=== PATIENT | male | born 1995 ===

== ENCOUNTER 2016-09-03 22:32 | Emergency (ER) | payer MEDICAID, OTHER ==
[2016-09-03 22:52] VITALS: BMI 31.4
[2016-09-03 23:01] VITALS: BP 118/76; PULSE 76; RESP 17; TEMP 97.8; O2SAT 98
--- NOTE | 2016-09-03 23:21 | ED PDOC ---
Arrival/HPI - General Chief Complaint: Back Pain Time Seen by Provider: 09/03/16 23:11 Historian: Patient - History of Present Illness Narrative History of Present Illness (Text): 09/03/16 23:25 Patient reports 1 week h/o pain in the L mid back, worse with movement, taking tylenol with minimal relief. Otherwise: (-) chest pain, (-) SOB, (-) fever, ( -) cough, (-) trauma, (-) injury, (-) paresthesias, (-) weakness, (-) acute bowel or bladder dysfunction, (-) urinary symptoms, (-) fever. Has no history of prior back problem. PMD Trusty Past Medical History - Provider Review Nursing Documentation Reviewed: Yes - Infectious Disease Hx of Infectious Diseases: None - Cardiac Hx Cardiac Disorders: No - Pulmonary Hx Respiratory Disorders: No - Neurological Hx Neurological Disorder: No - HEENT Hx HEENT Disorder: No - Renal Hx Renal Disorder: No - Endocrine/Metabolic Hx Endocrine Disorders: No - Hematological/Oncological Hx Blood Disorders: No - Integumentary Hx Dermatological Disorder: No - Musculoskeletal/Rheumatological Hx Musculoskeletal Disorders: No - Gastrointestinal Hx Gastrointestinal Disorders: No - Genitourinary/Gynecological Hx Genitourinary Disorders: No - Psychiatric Hx Depression: Yes (gender dysphoria) Hx Substance Use: No - Surgical History Hx Mastectomy: Yes (double) Other/Comment: Neck cyst removal. Double mastectomy - Anesthesia Hx Anesthesia: Yes Hx Anesthesia Reactions: No Hx Malignant Hyperthermia: No Family/Social History - Physician Review Nursing Documentation Reviewed: Yes Family/Social History: No Known Family HX Smoking Status: Never Smoked Hx Alcohol Use: Yes Frequency of alcohol use: Socially Hx Substance Use: No Allergies/Home Meds Allergies/Adverse Reactions: Allergies No Known Allergies Allergy (Unverified 09/03/16 22:52) Home Medications: Home Meds Medication Instructions Recorded Confirmed Testosterone Cypionate 0.5 ml IM AILIN 09/03/16 09/03/16 [Testosterone Cypionate] Review of Systems - Review of Systems Constitutional: Normal. absent: Fatigue, Weight Change, Fevers Respiratory: Normal. absent: SOB, Cough, Sputum Cardiovascular: Normal. absent: Chest Pain, Palpitations, Edema Gastrointestinal: Normal. absent: Abdominal Pain, Stool Changes, Appetite Changes Musculoskeletal: Normal, Arthralgias (L knee pain - chronic), Back Pain. absent : Neck Pain Skin: Normal. absent: Rash, Pruritis, Skin Lesions Physical Exam Vital Signs Temp Pulse Resp BP Pulse Ox 09/03/16 22:56 97.8 F 76 17 118/76 98 Temperature: Afebrile Blood Pressure: Normal Pulse: Regular Respiratory Rate: Normal Appearance: Positive for: Well-Appearing, Non-Toxic, Comfortable Pain Distress: None Mental Status: Positive for: Alert and Oriented X 3 - Systems Exam Head: Present: Atraumatic, Normocephalic Mouth: Present: Moist Mucous Membranes Pharnyx: Present: Normal Neck: Present: Normal Range of Motion. No: Meningeal Signs, MIDLINE TENDERNESS , Lymphadenopathy Respiratory/Chest: Present: Clear to Auscultation, Good Air Exchange. No: Respiratory Distress, Accessory Muscle Use, Wheezes, Rales, Retracting, Rhonchi Cardiovascular: Present: Regular Rate and Rhythm, Normal S1, S2. No: Murmurs Abdomen: Present: Normal Bowel Sounds. No: Tenderness, Distention, Peritoneal Signs, Rebound, Guarding Back: Present: Normal Inspection, Other (+point tenderness to the L mid back). No: CVA Tenderness, Midline Tenderness Upper Extremity: Present: Normal Inspection, Normal ROM, NORMAL PULSES, Neurovascularly Intact, Capillary Refill < 2s. No: Edema Lower Extremity: Present: Normal Inspection, NORMAL PULSES, Deformity, Neurovascularly Intact, Capillary Refill < 2 s. No: Edema, Tenderness Neurological: Present: GCS=15, CN II-XII Intact, Speech Normal, Motor Func Grossly Intact, Normal Sensory Function, Gait Normal Skin: Present: Warm, Dry. No: Rashes, Normal Color Psychiatric: Present: Alert, Oriented x 3, Normal Insight, Normal Concentration Medical Decision Making ED Course and Treatment: 09/03/16 23:22 21 yo M presents for back pain, likely muscle spasm. Given naprosyn po and flexeril po. - PA / ENERGY TRADER / Resident Statement MD/DO has reviewed & agrees with the documentation as recorded. Disposition/Present on Arrival - Present on Arrival Any Indicators Present on Arrival: No History of DVT/PE: No History of Uncontrolled Diabetes: No Urinary Catheter: No History of Decub. Ulcer: No History Surgical Site Infection Following: None - Disposition Have Diagnosis and Disposition been Completed?: Yes Diagnosis: Back pain Disposition: HOME/ ROUTINE Disposition Time: 23:11 Patient Plan: Discharge Condition: GOOD Discharge Instructions (ExitCare): Back Pain (ED) Print Language: PERUVIAN Additional Instructions: Thank you for letting us take care of you today. You were treated for back pain. The emergency medical care you received today was directed at your acute symptoms. If you were prescribed any medication, please fill it and take as directed. It may take several days for your symptoms to resolve. Return to the Emergency Department if your symptoms worsen, do not improve, or if you have any other problems. Please contact your doctor in 2 days for re-evaluation and follow up. Bring any paperwork you were given at discharge with you along with any medications you are taking to your follow up visit. Our treatment cannot replace ongoing medical care by a primary care provider (PCP) outside of the emergency department. Thank you for allowing the [facility] team to be part of your care today. Prescriptions: Cyclobenzaprine [Cyclobenzaprine HCl] 10 mg PO TID #15 tab Meloxicam [Mobic] 15 mg PO DAILY #30 tab
[2016-09-03] MEDS ORDERED: Naproxen 550 mg Tab PO STA (23:33)
== END 2016-09-03 23:52 | disposition home or self-care (01) ==
LOC: ED 22:32
DX: M54.9 Dorsalgia, unspecified (principal)

== ENCOUNTER 2018-05-29 21:00 | Emergency (ER) | payer MEDICAID, OTHER ==
[2018-05-29 21:08] VITALS: BMI 35.2
[2018-05-29 21:10] VITALS: RESP 18; TEMP 97.7
[2018-05-29 22:21] VITALS: BP 115/82; PULSE 75; O2SAT 100
--- NOTE | 2018-05-30 01:01 | ED PDOC ---
Arrival/HPI - General Chief Complaint: Back Pain Historian: Patient - History of Present Illness Narrative History of Present Illness (Text): 05/30/18 00:47 22 year old male, with no significant past medical history, presents to the emergency department complaining of back pain for 3 days. Patient informs having a history of back pain. Patient informs he did not take any medication. Patient denies any fall, trauma, fever, or cough. Patient denies any rash, abdominal pain, nausea, vomiting, chest pain, or any other complaints. Time/Duration: < week (3 days) Symptom Onset: Gradual Symptom Course: Unchanged Quality: Aching Activities at Onset: Light Context: Home Past Medical History - Provider Review Nursing Documentation Reviewed: Yes - Infectious Disease Hx of Infectious Diseases: None - Cardiac Hx Cardiac Disorders: No - Pulmonary Hx Respiratory Disorders: No - Neurological Hx Neurological Disorder: No - HEENT Hx HEENT Disorder: No - Renal Hx Renal Disorder: No - Endocrine/Metabolic Hx Endocrine Disorders: No - Hematological/Oncological Hx Blood Disorders: No - Integumentary Hx Dermatological Disorder: No - Musculoskeletal/Rheumatological Hx Musculoskeletal Disorders: No - Gastrointestinal Hx Gastrointestinal Disorders: No - Genitourinary/Gynecological Hx Genitourinary Disorders: No - Psychiatric Hx Psychophysiologic Disorder: Yes Hx Depression: Yes (gender dysphoria) Hx Substance Use: No - Surgical History Hx Mastectomy: Yes (double) Other/Comment: Neck cyst removal. Double mastectomy (transgender) - Anesthesia Hx Anesthesia: Yes Hx Anesthesia Reactions: No Hx Malignant Hyperthermia: No Family/Social History - Physician Review Nursing Documentation Reviewed: Yes Family/Social History: No Known Family HX Smoking Status: Never Smoked Hx Alcohol Use: Yes Hx Substance Use: No Allergies/Home Meds Allergies/Adverse Reactions: Allergies No Known Allergies Allergy (Verified 05/29/18 21:08) Home Medications: Home Meds Medication Instructions Recorded Confirmed Testosterone Cypionate 0.5 ml IM AILIN 09/03/16 09/03/16 Review of Systems - Physician Review All systems were reviewed & negative as marked: Yes - Review of Systems Constitutional: absent: Fevers Respiratory: absent: Cough Cardiovascular: absent: Chest Pain Gastrointestinal: absent: Abdominal Pain, Nausea, Vomiting Musculoskeletal: Back Pain Skin: absent: Rash Physical Exam Vital Signs Reviewed: Yes Vital Signs Temp Pulse Resp BP Pulse Ox 05/29/18 21:47 75 18 115/82 100 05/29/18 21:08 97.7 F 78 18 114/74 97 Temperature: Afebrile Blood Pressure: Normal Pulse: Regular Respiratory Rate: Normal Appearance: Positive for: Well-Appearing, Non-Toxic, Comfortable Pain Distress: None Mental Status: Positive for: Alert and Oriented X 3 - Systems Exam Head: Present: Atraumatic, Normocephalic Pupils: Present: PERRL Extroacular Muscles: Present: EOMI Conjunctiva: Present: Normal Mouth: Present: Moist Mucous Membranes Neck: Present: Normal Range of Motion Respiratory/Chest: Present: Clear to Auscultation, Good Air Exchange. No: Respiratory Distress, Accessory Muscle Use Cardiovascular: Present: Regular Rate and Rhythm, Normal S1, S2. No: Murmurs Abdomen: No: Tenderness, Distention, Peritoneal Signs Back: No: Midline Tenderness (Tendermness to the mid-thoracic musculature on both sides, no midline tenderness) Upper Extremity: Present: Normal Inspection. No: Cyanosis, Edema Lower Extremity: Present: Normal Inspection. No: Edema Neurological: Present: GCS=15, CN II-XII Intact, Speech Normal Skin: Present: Warm, Dry, Normal Color. No: Rashes Psychiatric: Present: Alert, Oriented x 3, Normal Insight, Normal Concentration Medical Decision Making ED Course and Treatment: 05/30/18 01:04 Impression: 22 year old male presents with mid back pain Plan: -- Flexeril -- Motrin -- Reassess and disposition Prior Visits: Notes and results from previous visits were reviewed. Progress Notes: - Medication Orders Current Medication Orders: Discontinued Medications Cyclobenzaprine HCl (Flexeril) 10 mg PO STAT STA Stop: 05/29/18 21:34 Last Admin: 05/29/18 21:44 Dose: 10 mg Ibuprofen (Motrin Tab) 600 mg PO STAT STA Stop: 05/29/18 21:34 Last Admin: 05/29/18 21:43 Dose: 600 mg MAR Pain/Vitals Document 05/29/18 21:43 AD (Rec: 05/29/18 21:44 AD [id number]) Pain Reassessment Is This A Pain ReAssessment? No Location Intensity 5 Scale Used Numeric Pain Behavior Facial Grimacing - Scribe Statement The provider has reviewed the documentation as recorded by the Scribe Aguilar Rodriguez All medical record entries made by the Scribe were at my direction and personally dictated by me. I have reviewed the chart and agree that the record accurately reflects my personal performance of the history, physical exam, medical decision making, and the department course for this patient. I have also personally directed, reviewed, and agree with the discharge instructions and disposition. Disposition/Present on Arrival - Present on Arrival Any Indicators Present on Arrival: No History of DVT/PE: No History of Uncontrolled Diabetes: No Urinary Catheter: No History of Decub. Ulcer: No History Surgical Site Infection Following: None - Disposition Have Diagnosis and Disposition been Completed?: Yes Diagnosis: Thoracic back sprain Disposition: HOME/ ROUTINE Disposition Time: 21:30 Condition: GOOD Discharge Instructions (ExitCare): Back Exercises Additional Instructions: MORENO ESTRADA, thank you for letting us take care of you today. Your provider was Victorino Beck DO and you were treated for BACK PAIN. The emergency medical care you received today was directed at your acute symptoms. If you were prescribed any medication, please fill it and take as directed. It may take several days for your symptoms to resolve. Return to the Emergency Department if your symptoms worsen, do not improve, or if you have any other problems. Please contact your doctor or call one of the physicians/clinics you have been referred to that are listed on the Patient Visit Information form that is inclu ded in your discharge packet. Bring any paperwork you were given at discharge with you along with any medications you are taking to your follow up visit. Our treatment cannot replace ongoing medical care by a primary care provider outside of the emergency department. Thank you for allowing the [facility] team to be part of your care today. Follow up with your primary care doctor this week for re-evaluation and further management. Prescriptions: Cyclobenzaprine [Cyclobenzaprine HCl] 10 mg PO Q8 PRN #20 tab PRN Reason: Muscle Spasm Ibuprofen [Motrin] 600 mg PO Q6 PRN #20 tab PRN Reason: Pain, Moderate (4-7) Referrals: [employer] Jessi Remarichuy, [Non-Staff] - Follow up with primary Forms: [employer] (Ecuadorean), WORK NOTE
== END 2018-05-29 21:47 | disposition home or self-care (01) ==
LOC: ED 21:00
DX: S23.3XXA Sprain of ligaments of thoracic spine, initial encounter (principal); X58.XXXA Exposure to other specified factors, initial encounter

== ENCOUNTER 2018-07-07 03:18 | Emergency (ER) | payer MEDICAID ==
[2018-07-07 03:18] VITALS: BMI 35.2
[2018-07-07 03:28] VITALS: TEMP 97.7
--- NOTE | 2018-07-07 03:31 | ED PDOC ---
Arrival/HPI - General Chief Complaint: Abnormal Skin Integrity Time Seen by Provider: 07/07/18 03:29 Historian: Patient - History of Present Illness Narrative History of Present Illness (Text): 07/07/18 03:31 Jimmie Zapien is a 22 year old, with no significant past medical history, who presents to the ED complaining of a diffuse pruritic rash since tonight. Patient notes the last item he ate prior was macaroni and cheese but is unsure what may have triggered the reaction. Patient denies any changes in diet, new lotions/soap, nausea, vomiting, facial/throat swelling, shortness of breath, or any other complaints. Time/Duration: Other (today) Symptom Onset: Gradual Symptom Course: Unchanged Activities at Onset: Light Context: Home Past Medical History - Provider Review Nursing Documentation Reviewed: Yes - Infectious Disease Hx of Infectious Diseases: None - Cardiac Hx Cardiac Disorders: No - Pulmonary Hx Respiratory Disorders: No - Neurological Hx Neurological Disorder: No - HEENT Hx HEENT Disorder: No - Renal Hx Renal Disorder: No - Endocrine/Metabolic Hx Endocrine Disorders: No - Hematological/Oncological Hx Blood Disorders: No - Integumentary Hx Dermatological Disorder: No - Musculoskeletal/Rheumatological Hx Musculoskeletal Disorders: No - Gastrointestinal Hx Gastrointestinal Disorders: No - Genitourinary/Gynecological Hx Genitourinary Disorders: No - Psychiatric Hx Psychophysiologic Disorder: Yes Hx Depression: Yes (gender dysphoria) Hx Substance Use: No - Surgical History Hx Mastectomy: Yes (double) Other/Comment: Neck cyst removal. Double mastectomy (transgender) - Anesthesia Hx Anesthesia: Yes Hx Anesthesia Reactions: No Hx Malignant Hyperthermia: No Family/Social History - Physician Review Nursing Documentation Reviewed: Yes Family/Social History: Unknown Family HX Smoking Status: Never Smoked Hx Alcohol Use: Yes Hx Substance Use: No Allergies/Home Meds Allergies/Adverse Reactions: Allergies No Known Allergies Allergy (Verified 07/07/18 03:30) Home Medications: Home Meds Medication Instructions Recorded Confirmed Testosterone Cypionate 0.5 ml IM AILIN 09/03/16 07/07/18 Bupropion HCl [Zyban] 150 mg PO DAILY 07/07/18 07/07/18 Gabapentin [Neurontin] 300 mg PO BID 07/07/18 07/07/18 Review of Systems - Physician Review All systems were reviewed & negative as marked: Yes - Review of Systems Constitutional: Normal. absent: Fevers Eyes: Normal ENT: Normal Respiratory: Normal. absent: SOB, Cough Cardiovascular: Normal. absent: Chest Pain Gastrointestinal: Normal. absent: Abdominal Pain, Diarrhea, Nausea, Vomiting Genitourinary Male: Normal. absent: Dysuria, Frequency, Hematuria, Urinary Output Changes Musculoskeletal: Normal. absent: Back Pain, Neck Pain Skin: Rash, Pruritis Neurological: Normal. absent: Headache, Dizziness Endocrine: Normal Hemo/Lymphatic: Normal Psychiatric: Normal Physical Exam Vital Signs Reviewed: Yes Vital Signs Temp Pulse Resp BP Pulse Ox 07/07/18 03:27 97.7 F 84 18 125/87 98 Temperature: Afebrile Blood Pressure: Normal Pulse: Regular Respiratory Rate: Normal Appearance: Positive for: Well-Appearing, Non-Toxic, Comfortable Pain Distress: None Mental Status: Positive for: Alert and Oriented X 3 - Systems Exam Head: Present: Atraumatic, Normocephalic Pupils: Present: PERRL Extroacular Muscles: Present: EOMI Conjunctiva: Present: Normal Mouth: Present: Moist Mucous Membranes Neck: Present: Normal Range of Motion Respiratory/Chest: Present: Clear to Auscultation, Good Air Exchange. No: Respiratory Distress, Accessory Muscle Use Cardiovascular: Present: Regular Rate and Rhythm, Normal S1, S2. No: Murmurs Abdomen: No: Tenderness, Distention, Peritoneal Signs Back: Present: Normal Inspection Upper Extremity: Present: Normal Inspection. No: Cyanosis, Edema Lower Extremity: Present: Normal Inspection. No: Edema Neurological: Present: GCS=15, CN II-XII Intact, Speech Normal Skin: Present: Warm, Dry, Rashes (Scattered papular urticaria to chest, back, and face), Normal Color Psychiatric: Present: Alert, Oriented x 3, Normal Insight, Normal Concentration Medical Decision Making ED Course and Treatment: 07/07/18 03:31 Impression: 22 year old male complaining of a diffuse, pruritic rash. Plan: -- Benadryl -- Solu-medrol -- Reassess and disposition Prior Visits: Notes and results from previous visits were reviewed. Progress Notes: 07/07/18 05:59 Pt feels 100% better after receiving medication. Patient is stable for discharge. Patient was instructed to follow up with physician/clinic in 1-2 days or return if symptoms persist/worsen or new concerning symptoms arise. - Scribe Statement The provider has reviewed the documentation as recorded by the [employer] Provider Scribe Attestation: All medical record entries made by the Scribe were at my direction and personally dictated by me. I have reviewed the chart and agree that the record accurately reflects my personal performance of the history, physical exam, med ical decision making, and the department course for this patient. I have also personally directed, reviewed, and agree with the discharge instructions and disposition. Disposition/Present on Arrival - Present on Arrival Any Indicators Present on Arrival: No History of DVT/PE: No History of Uncontrolled Diabetes: No Urinary Catheter: No History of Decub. Ulcer: No History Surgical Site Infection Following: None - Disposition Have Diagnosis and Disposition been Completed?: Yes Diagnosis: Allergic reaction, Urticaria Disposition: HOME/ ROUTINE Disposition Time: 05:58 Patient Plan: Discharge Patient Problems: Current Active Problems Problem Status Onset Allergic reaction Acute Urticaria Acute Condition: STABLE Discharge Instructions (ExitCare): Dori (DC) Additional Instructions: Take meds as prescribed/follow up with your doctor this week Prescriptions: DiphenhydrAMINE [Benadryl] 50 mg PO Q6 PRN #24 cap PRN Reason: Itching / Pruritus predniSONE [Prednisone] 40 mg PO DAILY #10 tab Referrals: Naeem Sol MD [Primary Care Provider] - Follow up with primary Forms: [employer] (Mauritanian)
[2018-07-07] MEDS ORDERED: DiphenhydrAMINE 50 mg/ml Inj IM STA (03:32)
[2018-07-07 06:04] VITALS: O2SAT 100
[2018-07-07 06:07] VITALS: BP 116/79; PULSE 71; RESP 19
== END 2018-07-07 06:06 | disposition home or self-care (01) ==
LOC: ED 03:18
DX: L50.0 Allergic urticaria (principal)
CPT/HCPCS: 96372; 96374; 99283; J1200; J2930

== ENCOUNTER 2018-07-10 16:17 | Emergency (ER) | payer MEDICAID ==
[2018-07-10 16:38] VITALS: BMI 37.1
[2018-07-10 16:42] VITALS: RESP 18; O2SAT 96
[2018-07-10] MEDS ORDERED: DiphenhydrAMINE 50 mg/ml Inj IVP STA (18:10)
[2018-07-10 18:20] VITALS: BP 126/79; PULSE 75; TEMP 98.3
--- NOTE | 2018-07-10 18:45 | ED PDOC ---
Arrival/HPI - General Chief Complaint: Abnormal Skin Integrity Time Seen by Provider: 07/10/18 16:39 Historian: Patient - History of Present Illness Narrative History of Present Illness (Text): 07/10/18 18:42 22-year-old male presents today with continued pruritus. Patient states that he is having continued pruritus and rash despite taking Benadryl and prednisone at home. Patient states the rash started on Monday after eating macaroni and cheese but he does not believe that it is related to the macaroni and cheese. Patient does admit to starting to new psychiatric medications about 3 weeks ago. Patient denies chest pain or shortness of breath. He denies fevers or chills. Patient states he notices a small area of erythema he scratches it and the erythema worsens. Patient denies dizziness or weakness. States he has not followed up with a dish cloth inspector but he does have a follow-up appointment with his primary care physician in a few days. Past Medical History - Provider Review Nursing Documentation Reviewed: Yes - Travel History Have you recently traveled outside [place] w/in the past 3 mons?: No - Infectious Disease Hx of Infectious Diseases: None - Cardiac Hx Cardiac Disorders: No - Pulmonary Hx Respiratory Disorders: No - Neurological Hx Neurological Disorder: No - HEENT Hx HEENT Disorder: No - Renal Hx Renal Disorder: No - Endocrine/Metabolic Hx Endocrine Disorders: No - Hematological/Oncological Hx Blood Disorders: No - Integumentary Hx Dermatological Disorder: No - Musculoskeletal/Rheumatological Hx Musculoskeletal Disorders: No - Gastrointestinal Hx Gastrointestinal Disorders: No - Genitourinary/Gynecological Hx Genitourinary Disorders: No - Psychiatric Hx Psychophysiologic Disorder: Yes Hx Depression: Yes (gender dysphoria) Hx Substance Use: No - Surgical History Hx Mastectomy: Yes (double) Other/Comment: Neck cyst removal. Double mastectomy (transgender) - Anesthesia Hx Anesthesia: Yes Hx Anesthesia Reactions: No Hx Malignant Hyperthermia: No Family/Social History - Physician Review Nursing Documentation Reviewed: Yes Family/Social History: Unknown Family HX Smoking Status: Never Smoked Hx Alcohol Use: Yes Hx Substance Use: No Allergies/Home Meds Allergies/Adverse Reactions: Allergies No Known Allergies Allergy (Verified 07/10/18 16:38) Home Medications: Home Meds Medication Instructions Recorded Confirmed Testosterone Cypionate 0.5 ml IM AILIN 09/03/16 07/10/18 Bupropion HCl [Zyban] 150 mg PO DAILY 07/07/18 07/10/18 Gabapentin [Neurontin] 300 mg PO BID 07/07/18 07/10/18 Review of Systems - Review of Systems Constitutional: absent: Fatigue, Fevers ENT: absent: Sore Throat, Sinus Congestion Respiratory: absent: SOB, Cough Cardiovascular: absent: Chest Pain, Palpitations Gastrointestinal: absent: Abdominal Pain, Nausea, Vomiting Genitourinary Male: absent: Dysuria Musculoskeletal: absent: Arthralgias, Back Pain Skin: Rash, Pruritis Neurological: absent: Headache, Dizziness Psychiatric: absent: Anxiety, Depression Physical Exam Vital Signs Reviewed: Yes Vital Signs Temp Pulse Resp BP Pulse Ox 07/10/18 18:19 98.3 F 75 18 126/79 96 07/10/18 16:41 97.5 F L 104 H 18 138/84 96 Temperature: Afebrile Blood Pressure: Normal Pulse: Tachycardic Respiratory Rate: Normal Appearance: Positive for: Well-Appearing, Non-Toxic, Comfortable Pain Distress: None Mental Status: Positive for: Alert and Oriented X 3 - Systems Exam Head: Present: Atraumatic Mouth: Present: Moist Mucous Membranes Respiratory/Chest: Present: Clear to Auscultation Cardiovascular: Present: Regular Rate and Rhythm Abdomen: No: Tenderness, Rebound, Guarding Upper Extremity: Present: Normal ROM Lower Extremity: Present: Normal ROM Neurological: Present: GCS=15, Speech Normal Skin: Present: Warm, Dry, Rashes (There is erythema and small papules noted to the right anterior chest and right upper back. Within this erythema are wheals in the shape of scratch min. There is erythema and multiple wheals in the shape of scratch min noted to the mid lower back. There are small erythematous papules and erythema noted on the dorsal aspect of the left foot. There is no rash on the palms or soles. ), Normal Color Psychiatric: Present: Alert, Oriented x 3 Medical Decision Making ED Course and Treatment: 07/10/18 18:45 Patient is nontoxic well-appearing in no distress with stable vital signs no angioedema. Lungs are clear to auscultation bilaterally there is no wheezing noted. The airway is patent Patient has multiple areas of dermatographia noted on the back and anterior chest. Benadryl 50 mg IV Pepcid 20 mg IV Patient has been on prednisone for 3 days. I have advised the patient to continue taking the prednisone. I will not give additional dosing of prednisone in the emergency room as the patient has more at home and needs to complete the treatment. The patient states about 3 weeks ago he started new psychiatric medications. There is a possibility that these medications could be causing his pruritus. Patient reassessment: After medications patient is feeling much better the lungs are clear to auscultation bilaterally the airway is patent the patient is speaking in full sentences. I advised taking Benadryl every 6 hours as needed for itch. I advised adding Pepcid once daily. I would advise completing the prednisone as prescribed. i ad dish cloth inspector, area coordinator vised patient to follow up with primary care physician within the next 2 days and return if symptoms worsen persist or if new symptoms develop Patient verbalizes understanding of discharge instructions and need for immediate followup. All aspects of this case were discussed the attending of record. Impression: rash Benadryl every 6 hours as needed for itch Continue prednisone as prescribed Pepcid one tablet daily Follow up with the primary care physician tomorrow Follow-up with a dish cloth inspector within the next 2 days Return if symptoms worsen persist or if new symptoms develop: Shortness of breath, feeling of throat closing, difficulty speaking or any other concerning symptoms develop Reassessment Condition: Re-examined, Improved - Medication Orders Current Medication Orders: Discontinued Medications Diphenhydramine HCl (Benadryl) 50 mg IVP STAT STA Stop: 07/10/18 18:11 Last Admin: 07/10/18 18:19 Dose: 50 mg IVP Administration Document 07/10/18 18:19 [place] (Rec: 07/10/18 18:19 [facility]) Charges for Administration # of IVP Administrations 1 Famotidine (Pepcid) 20 mg IVP STAT STA Stop: 07/10/18 18:11 Last Admin: 07/10/18 18:18 Dose: 20 mg IVP Administration Document 07/10/18 18:18 [place] (Rec: 07/10/18 18:18 [facility]) Charges for Administration # of IVP Administrations 1 Disposition/Present on Arrival - Present on Arrival Any Indicators Present on Arrival: No History of DVT/PE: No History of Uncontrolled Diabetes: No Urinary Catheter: No History of Decub. Ulcer: No History Surgical Site Infection Following: None - Disposition Have Diagnosis and Disposition been Completed?: Yes Diagnosis: Rash Disposition Time: 18:48 Patient Plan: Discharge Condition: GOOD Discharge Instructions (ExitCare): Skin Rash (DC) Additional Instructions: Benadryl every 6 hours as needed for itch Continue prednisone as prescribed Pepcid one tablet daily Follow up with the primary care physician tomorrow Follow-up with a dish cloth inspector within the next 2 days Return if symptoms worsen persist or if new symptoms develop: Shortness of breath, feeling of throat closing, difficulty speaking or any other concerning symptoms develop Prescriptions: DiphenhydrAMINE [Benadryl] 25 mg PO Q6H #20 cap Famotidine [Pepcid] 20 mg PO DAILY #30 tab Referrals: Raji Degroot MD [Staff Provider] - Follow up with primary Petty Ordaz MD [Staff Provider] - Follow up with primary Nasrin Randall MD [Medical Doctor] - Follow up with primary [facility] [Outside] - Follow up with primary Forms: [facility] (Malay), WORK NOTE
== END 2018-07-10 19:25 | disposition home or self-care (01) ==
LOC: ED 16:17
DX: R21 Rash and other nonspecific skin eruption (principal)
CPT/HCPCS: 96374; 96375; 99283; J1200